=== PATIENT | female | born 1985 | race Caucasian/White ===

== ENCOUNTER → 2018-05-27 | Outpatient (CLI) | payer OTHER ==
--- NOTE | 2018-05-27 15:45 | RAD ---
Transabdominal and transvaginal sonography of the pelvis Clinical indications: Heavy abnormal menses. Pelvic pain. History of torsion on the right side. COMPARISON: None available. Transabdominal sonography: The uterus is anteverted in position. The longitudinal and AP and transverse dimensions of the uterus are 8.6 cm and 4.6 cm and 5.7 respectively. The endometrial canal is poorly visualized. Therefore, transvaginal sonography will be performed. There is a prominent cyst of the right ovary. Cyst measures 4.1 cm. The left ovary is not visualized by transabdominal exam. Transvaginal sonography: The cyst within the right ovary is essentially anechoic. There is color Doppler flow within the thin rim of ovarian parenchyma around the cyst. This cyst measures 4.2 cm by transvaginal exam. There is a smaller follicular cyst within the right ovary measuring 0.7 cm. The left ovary is seen low within the cul-de-sac posterior to the cervix. Multiple cysts of the left ovary are seen. The largest measures 4.7 cm. Color Doppler flow is seen within the ovarian parenchyma of the left ovary. No free fluid is evident. A Nabothian cyst of the cervix is seen. The endometrial canal is not abnormally thickened measuring 2 mm. No uterine mass or fibroid is seen. Echodensity is seen within the endometrial canal which may be secondary to air from recent pelvic exam or could represent calcification from previous surgery or . IMPRESSION: Prominent bilateral ovarian cysts which are essentially anechoic in nature. Largest cyst on the left side measures 4.7 cm. The largest cyst on the right side measures 4.2 cm. These may be followed up with a sonogram in one year. Color Doppler flow is seen within both ovaries. No free fluid is evident. Electronically signed by: Edouard Morataya MD (05/27/2018 3:41 PM) [facility]
== END | disposition home or self-care (01) ==
LOC: US 13:57
DX: N83.292 Other ovarian cyst, left side (principal); N83.291 Other ovarian cyst, right side; N88.8 Other specified noninflammatory disorders of cervix uteri
CPT/HCPCS: 76856